=== PATIENT | female | born 1930 | race Caucasian/White ===

== ENCOUNTER 2019-05-28 20:07 | Emergency (ER) | payer MEDICARE, BC ==
--- NOTE | 2019-05-28 20:12 | ED.PDOC ---
History of Present Illness - General Time Seen by Provider: 05/28/19 20:08 - History of Present Illness Initial Comments: Pt fell down from the couch and hurt her R knee and thigh , having pain , no swelling , slight decrease in range of motion Severity: moderate Reason for Fall: slipped Loss of Consciousness: no loss of consciousness Improving Factors: immobilization Worsening Factors: movement Associated Symptoms (Fall): denies symptoms Allergies/Adverse Reactions: Allergies NO KNOWN ALLERGY Allergy (Verified 05/28/19 20:15) Home Medications: Ambulatory Orders Albuterol Sulfate [Albuterol Sulfate Hfa] 90 mcg IN Q6HR PRN 05/28/19 Amiodarone HCl 200 mg PO DAILY 05/28/19 Apixaban [Eliquis] 2.5 mg PO BID 05/28/19 Denosumab [Prolia] 60 mg SC 05/28/19 Fluticasone-Salmeterol [Advair Hfa] 1 aer IN BID 05/28/19 Metoprolol Tartrate 50 mg PO BID 05/28/19 Naproxen [Naprosyn] 500 mg PO BID #10 tab 05/28/19 Review of Systems - Review of Systems Constitutional: States: no symptoms reported EENTM: States: no symptoms reported Respiratory: States: no symptoms reported Cardiology: States: no symptoms reported Gastrointestinal/Abdominal: States: no symptoms reported Genitourinary: States: no symptoms reported Musculoskeletal: States: see HPI Skin: States: no symptoms reported Neurological: States: no symptoms reported Endocrine: States: no symptoms reported Hematologic/Lymphatic: States: no symptoms reported Physical Exam - Physical Exam General Appearance: Alert, Comfortable Head Injury: no evidence of injury Eye Exam: bilateral normal ENT Exam: hearing grossly normal, no evidence of ENT injury Cardiovascular/Respiratory: regular rate, rhythm, no M/R/G Back Exam: normal inspection, no CVA tenderness, no vertebral tenderness Extremity Exam: pain with movement - over R knee and thigh , tenderness 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 Copy, Patient Portal Self Enrollment Instructions: DI for Trauma Prescriptions: Naproxen [Naprosyn] 500 mg PO BID #10 tab Home Medications: Ambulatory Orders Albuterol Sulfate [Albuterol Sulfate Hfa] 90 mcg IN Q6HR PRN 05/28/19 Amiodarone HCl 200 mg PO DAILY 05/28/19 Apixaban [Eliquis] 2.5 mg PO BID 05/28/19 Denosumab [Prolia] 60 mg SC 05/28/19 Fluticasone-Salmeterol [Advair Hfa] 1 aer IN BID 05/28/19 Metoprolol Tartrate 50 mg PO BID 05/28/19 Naproxen [Naprosyn] 500 mg PO BID #10 tab 05/28/19
[2019-05-28] MEDS: KETOROLAC TROMETHAMINE INJ 30 MG/ML VIAL IM ONE ×2 (20:14→20:16)
--- NOTE | 2019-05-28 20:55 | RAD ---
EXAM DESCRIPTION: XR Femur, Right (accession [id number]), XR Knee, Right Complete (accession [id number]) CLINICAL HISTORY: 89 years Female pain TECHNIQUE: Two views of the right femur and three views of the right knee. COMPARISON: No prior exams provided for comparison. FINDINGS: Prior open reduction internal fixation of a healed right intertrochanteric fracture utilizing a long intramedullary tony and proximal cannulated screws. Prior right knee arthroplasty. There is an acute, coronal oblique fracture through the right distal femoral diaphysis with mild posterior displacement. No right hip or right knee dislocation. No other acute fracture. IMPRESSION: Postsurgical changes in the right femur and right knee with an acute periprosthetic fracture of the right distal femoral diaphysis. No dislocation. Electronically signed by: Hilaria Bloom MD 05/28/2019 8:53 PM [facility]
--- NOTE | 2019-05-28 20:55 | RAD ---
EXAM DESCRIPTION: XR Femur, Right (accession [id number]), XR Knee, Right Complete (accession [id number]) CLINICAL HISTORY: 89 years Female pain TECHNIQUE: Two views of the right femur and three views of the right knee. COMPARISON: No prior exams provided for comparison. FINDINGS: Prior open reduction internal fixation of a healed right intertrochanteric fracture utilizing a long intramedullary tony and proximal cannulated screws. Prior right knee arthroplasty. There is an acute, coronal oblique fracture through the right distal femoral diaphysis with mild posterior displacement. No right hip or right knee dislocation. No other acute fracture. IMPRESSION: Postsurgical changes in the right femur and right knee with an acute periprosthetic fracture of the right distal femoral diaphysis. No dislocation. Electronically signed by: Hilaria Bloom MD 05/28/2019 8:53 PM [facility]
[2019-05-28 21:18] VITALS: O2SAT 98
[2019-05-28] MEDS ORDERED: MORPHINE SULFATE INJ 10 MG/ML VIAL IV ONE (21:50)
[2019-05-28 22:03] VITALS: BP 128/67; TEMP 97.4
== END 2019-05-28 22:23 | disposition short-term general hospital (02) ==
LOC: ER 20:07
DX: S72.491A Other fracture of lower end of right femur, initial encounter for closed fracture (principal); S89.91XA Unspecified injury of right lower leg, initial encounter; Z96.651 Presence of right artificial knee joint; Z79.01 Long term (current) use of anticoagulants; Z79.899 Other long term (current) drug therapy; W08.XXXA Fall from other furniture, initial encounter; Y92.9 Unspecified place or not applicable
CPT/HCPCS: 73551; 73562; 81001; 87086; J2270